=== PATIENT | female | born 1955 | race Caucasian/White ===

== ENCOUNTER → 2017-09-04 14:40 | Outpatient (CLI) | payer OTHER, SELFPAY ==
--- NOTE | 2017-09-04 14:44 | RAD_ITS ---
STUDY: X-RAY - SACRUM/COCCYX REASON FOR EXAM: Female, 62 years old. Tailbone pain TECHNIQUE: 3 view(s) of the sacrum and coccyx were obtained. COMPARISON: None. FINDINGS: There is degenerative arthrosis of the bilateral sacroiliac joints. Normal visualized sacral ala and fused sacral bodies. Normal sacrococcygeal junction with a normal angulation. Normal coccygeal segments. The presacral soft tissue structures are unremarkable. There is no demonstrated fracture. RAD/Sacrum-Coccyx min 2 Views IMPRESSION: No acute findings Electronically Signed: Jay Lauren DO at 8:50 EST Tel , Service support ,
--- NOTE | 2017-09-04 14:44 | RAD_ITS ---
STUDY: X-RAY - ABDOMEN/PELVIS REASON FOR EXAM: Female, 62 years old. Abdominal pain, chronic constipation TECHNIQUE: Two AP supine views of the abdomen and pelvis. COMPARISON: None. FINDINGS: Normal visualized lung bases. There is an abundance of fecal material throughout the colon. There is no demonstrated free abdominal air. The visualized liver, spleen and kidneys are grossly normal in size and morphology. There are calcified phleboliths in the pelvis. There are diffuse degenerative changes of the visualized lumbar spine. RAD/Abdomen Single View IMPRESSION: Abundant fecal retention throughout the colon Electronically Signed: Jay Lauren DO at 8:50 EST Tel , Service support ,
== END ==
PROVIDERS: Family Provider Internal Medicine; PCP Internal Medicine; Visit Provider Internal Medicine
DX: K59.09 Other constipation (principal); M53.3 Sacrococcygeal disorders, not elsewhere classified
CPT/HCPCS: 72220; 74018

== ENCOUNTER → 2017-09-24 14:31 | Outpatient (CLI) | payer OTHER, SELFPAY ==
--- NOTE | 2017-09-24 14:34 | RAD_ITS ---
STUDY: X-RAY CHEST REASON FOR EXAM: Female, 62 years old. Influenza. TECHNIQUE: PA and lateral views of the chest. COMPARISON: Comparison is made with prior study dated July 24, 2014. FINDINGS: Hyperinflation. Scattered calcified granulomas. There is no demonstrated pleural abnormality. Normal size heart. Normal mediastinum and abad. Normal visualized pulmonary arteries. There is atherosclerotic tortuosity of the aortic arch and descending thoracic aorta. There is demineralization of the osseous structures. Normal visualized ribs, clavicles, and shoulders. There is no demonstrated abnormality of the visualized soft tissue structures of the upper abdomen. RAD/Chest PA and Lateral IMPRESSION: Hyperinflation. No acute abnormality is seen. Electronically Signed: Oswaldo Sanchez MD at 14:57 EST Tel [phone], Service support ,
== END ==
PROVIDERS: Family Provider Internal Medicine; PCP Internal Medicine; Visit Provider Nurse Practitioner
DX: J11.1 Influenza due to unidentified influenza virus with other respiratory manifestations (principal)
CPT/HCPCS: 71046

== ENCOUNTER → 2018-10-02 15:50 | Outpatient (CLI) | payer OTHER, SELFPAY ==
--- NOTE | 2018-10-02 15:57 | BI_ITS ---
MAMMOGRAPHY - BILATERAL SCREENING REASON FOR EXAM: Female, 63 years old. Routine annual screening examination. PERTINENT HISTORY: Non-contributory. TECHNIQUE: Digital bilateral breast jennifer (3D mammographic acquisition) in the CC and MLO projections. 2-D mediolateral oblique (MLO) and craniocaudad (CC) views of both breasts were obtained. CAD: Full Field Digital Mammography with Computer Added Detection was performed. COMPARISON: Comparison is made with prior study dated July 26, 2017 and June 30, 2016. FINDINGS: Breast Composition: The breasts are heterogeneously dense, which may obscure small masses. There are no dominant masses or suspicious calcifications. No other significant abnormalities are identified. There has been no significant change since the prior study. BI/SCREENING MAMM (CAD), BILAT IMPRESSION: Stable bilateral screening mammogram. Yearly follow-up mammogram recommended. (A) ASSESSMENT CATEGORY: BIRADS Category 1: Negative. A letter regarding these results will be sent to the patient by the facility within 30 days. Approximately 10% of breast cancers are not detected by mammography. A normal mammogram should not delay biopsy of a clinically suspicious abnormality. [id number] Electronically Signed: Oswaldo Sanchez, at 8:23 EST , Service support ,
== END ==
PROVIDERS: Family Provider Internal Medicine; PCP Internal Medicine; Referring Provider Internal Medicine; Visit Provider Internal Medicine
DX: Z12.31 Encounter for screening mammogram for malignant neoplasm of breast (principal)
CPT/HCPCS: 77063; 77067

== ENCOUNTER → 2019-11-10 | Outpatient (CLI) | payer OTHER, SELFPAY ==
[2019-07-21 17:08] VITALS: BMI 24.5
--- NOTE | 2019-11-10 12:42 | BI_ITS ---
MAMMOGRAPHY - BILATERAL SCREENING REASON FOR EXAM: Female, 64 years old. Routine annual screening examination. PERTINENT HISTORY: Non-contributory. TECHNIQUE: Digital bilateral breast john (3D mammographic acquisition) in the CC and MLO projections. 2-D mediolateral oblique (MLO) and craniocaudad (CC) views of both breasts were obtained. CAD: Full Field Digital Mammography with Computer Added Detection was performed. COMPARISON: Comparison is made with prior study dated October 02, 2018 and July 26, 2017. FINDINGS: Breast Composition: The breasts are heterogeneously dense, which may obscure small masses. There are no dominant masses or suspicious calcifications. No other significant abnormalities are identified. There has been no significant change since the prior study. BI/SCREEN MAMM (CAD) W/JOHN BILAT IMPRESSION: Stable bilateral screening mammogram. Yearly follow-up mammogram recommended. (A) ASSESSMENT CATEGORY: BIRADS Category 1: Negative. A letter regarding these results will be sent to the patient by the facility within 30 days. Approximately 10% of breast cancers are not detected by mammography. A normal mammogram should not delay biopsy of a clinically suspicious abnormality. [id number] Electronically Signed: Oswaldo Sanchez, at 14:49 EDT , Service support ,
== END | disposition home or self-care (01) ==
PROVIDERS: PCP Internal Medicine; Referring Provider Internal Medicine; Visit Provider Internal Medicine
DX: Z12.31 Encounter for screening mammogram for malignant neoplasm of breast (principal)
CPT/HCPCS: 77063; 77067

== ENCOUNTER → 2020-07-02 | Outpatient (CLI) | payer OTHER, SELFPAY ==
[2020-07-02 11:27] VITALS: BMI 23.0
== END | disposition home or self-care (01) ==
LOC: LABSPEC 12:16
PROVIDERS: Visit Provider Physician Assistant Surgical
DX: U07.1 COVID-19 (principal)
CPT/HCPCS: 87635; U0003

== ENCOUNTER → 2020-12-13 10:21 | Outpatient (CLI) | payer OTHER, SELFPAY ==
[2020-07-02 11:27] VITALS: BMI 23.0
--- NOTE | 2020-12-13 10:24 | BI_ITS ---
MAMMOGRAPHY - BILATERAL SCREENING REASON FOR EXAM: Female, 65 years old. Routine annual screening examination. PERTINENT HISTORY: Non-contributory. TECHNIQUE: Digital bilateral breast john (3D mammographic acquisition) in the CC and MLO projections. 2-D mediolateral oblique (MLO) and craniocaudad (CC) views of both breasts were obtained. CAD: Full Field Digital Mammography with Computer Added Detection was performed. COMPARISON: Comparison is made with prior study 11/10/2019 and 06/01/2019. FINDINGS: Breast Composition: The breasts are heterogeneously dense, which may obscure small masses. There are no dominant masses or suspicious calcifications. No other significant abnormalities are identified. There has been no significant change since the prior study. BI/SCRN MAMM (CAD)W/JOHN BILAT IMPRESSION: Stable bilateral screening mammogram. Yearly follow-up mammogram recommended. (A) ASSESSMENT CATEGORY: BIRADS Category 1: Negative. A letter regarding these results will be sent to the patient by the facility within 30 days. Approximately 10% of breast cancers are not detected by mammography. A normal mammogram should not delay biopsy of a clinically suspicious abnormality. [id number] Electronically Signed: Oswaldo Sanchez MD at 12:55 EDT , Service support ,
== END ==
PROVIDERS: PCP Internal Medicine; Referring Provider Internal Medicine; Visit Provider Internal Medicine
DX: Z12.31 Encounter for screening mammogram for malignant neoplasm of breast (principal)
CPT/HCPCS: 77063; 77067

== ENCOUNTER → 2021-03-24 07:16 | Outpatient (CLI) | payer OTHER, SELFPAY ==
[2020-07-02 11:27] VITALS: BMI 23.0
--- NOTE | 2021-03-24 07:21 | MRI_ITS ---
STUDY: MRI BRAIN WITH AND WITHOUT CONTRAST REASON FOR EXAM: Female, 66 years old. MS- diagnosed 2001, episode of speech issues, confusion TECHNIQUE: Standardized multiplanar fat and water weighted pulse sequences were obtained. 14ml IV Dotarem was administered for the contrast portion of the examination. COMPARISON: None. FINDINGS: Normal size of the ventricles and extra-axial spaces for the patient''s age. There are perpendicular hyperintensities of the pericallosal and periventricular white matter consistent with known demyelinating disease (multiple sclerosis). No contrast enhancing plaque. There is no evidence for recent intracranial ischemia or other cause of cytotoxic edema on diffusion weighted imaging (DWI). Normal T2* images of the brain without demonstrated susceptibility artifact. There is no demonstrated hemosiderin stain. Normal bilateral basal ganglia. Normal thalami. There is no extra-axial fluid accumulation. Normal flow voids within the major intracranial circulation suggesting patency by spin echo criteria. Normal venous enhancement. There is no enhancing intra-axial or extra-axial abnormality. Normal sella turcica, pituitary gland, infundibular stalk, optic chiasm and hypothalamus. Normal tectal plate and pineal gland. Normal midbrain, devin and medulla. Normal cerebellum. Normal basal cisterns. Normal bilateral temporal bones. Normal bilateral internal auditory canals. No demonstrated orbital abnormality, within the constraints of a routine brain study. Normal visualized paranasal sinuses. Normal calvarium and skull base. Normal visualized soft tissue structures. Normal visualized upper cervical spine. MRI/Brain W/WO Contrast IMPRESSION: Known demyelinating disease (multiple sclerosis). No contrast enhancing plaque. Electronically Signed: Brent Zhao MD at 8:36 EDT Tel , Service support ,
[2021-03-24 07:36] LABS: CREATININE FINGERSTICK 0.7 mg/dL (0.55-1.02); EGFR FINGERSTICK > 60.0000 mL/min (>60)
== END ==
PROVIDERS: PCP Internal Medicine; Referring Provider Psychiatry & Neurology Neurology; Visit Provider Psychiatry & Neurology Neurology
DX: G35 Multiple sclerosis (principal)
CPT/HCPCS: 70553; A9575

== ENCOUNTER 2021-03-28 19:48 | Inpatient (IN) | payer OTHER, SELFPAY ==
[2021-03-28 19:49] VITALS: BP 128/81; PULSE 81; RESP 16; TEMP 36.2; O2SAT 97; BMI 22.8
--- NOTE | 2021-03-28 20:37 | CT_ITS ---
INDICATION: Left flank pain EXAMINATION: CT Abdomen And Pelvis W/O Contrast Injection TECHNIQUE: Helically acquired images were obtained of the abdomen and pelvis without the use of IV contrast. A radiation dose optimization technique was used for this scan. Oral contrast: None. COMPARISON: None FINDINGS: Evaluation of the solid organs and vascular structures is limited without intravenous contrast. Visualized lung bases: Unremarkable Liver: Scattered subcentimeter hypodensities are too small to characterize but most likely cysts. Gallbladder: Unremarkable Spleen: Unremarkable Pancreas: Unremarkable Adrenal Glands: Unremarkable Kidneys: Mild left hydronephrosis. No definite obstructing stone is seen. Vasculature: Mild scattered aortoiliac atherosclerotic calcifications. GI Tract: Unremarkable Lymphadenopathy: None Peritoneum: No ascites. Bladder: Unremarkable Reproductive organs: Unremarkable Bones/Soft tissues: No suspicious osseous or soft tissue lesions CT/Abdomen/Pelvis without Cont IMPRESSION: Mild left hydronephrosis with no obvious obstructing stone visualized. There are multiple pelvic phleboliths in the pelvis which make it difficult to identify a ureteral stone on this examination. Consider multiphase CT urogram w/ and w/out contrast. Electronically Signed: Manjeet Cardoza MD at 21:16 EDT Tel , Service support ,
--- NOTE | 2021-03-28 20:42 | EX.ED.DYSGE1 ---
HPI History of Present Illness Chief Complaint: Flank Pain Informant: patient Narrative Narrative: Patient is a 66-year-old female with a past medical history of multiple sclerosis who presents to the emergency department for left-sided flank pain. It started around 6 PM today. She is never had this pain before. No previous abdominal surgeries. She denies any urinary symptoms. No change in bowel movements. No vomiting. She took ibuprofen just prior to coming in which has not given significant relief. She describes the pain as severe. No known aggravating or relieving factors. Does wrap around to the left lower quadrant. She denies any history of kidney stones. She denies any chest pain or shortness of breath. No fevers or chills. [facility] Medical History (Updated 03/28/21 @ 23:[address] Ted Jolly DO) Migraine Multiple sclerosis Home Medications Excedrin Migraine Caplet mg PO UD 11/01/16 [History Last Taken Unknown] amantadine HCl 100 mg PO BID 11/01/16 [History Last Taken Unknown] calcium carbonate-vitamin D3 1 mg PO DAILY 11/01/16 [History Last Taken Unknown] denosumab 60 mg SQ UD 11/01/16 [History Last Taken Unknown] ibuprofen 200 mg PO Q4H PRN PRN 11/01/16 [History Last Taken Unknown] Allergy/AdvReac Type Severity Reaction Status Date / Time tramadol AdvReac Severe Nausea/Vom/ Verified 03/28/21 20:46 Diarrhea HAY FEVER Allergy Unknown Uncoded 03/28/21 19:52 Social History Smoking Status: Never smoker [facility] ED Constitutional Constitutional ED: Denies chills or fever(s) ENT ENT ED: Denies rhinorrhea Cardiovascular Cardiovascular: Denies chest pain Respiratory/Chest Respiratory/Chest: Denies cough or dyspnea Gastrointestinal Gastrointestinal: Reports abdominal pain; Denies diarrhea or vomiting Genitourinary Genitourinary ED: Denies dysuria, hematuria or urinary frequency Musculoskeletal Musculoskeletal: Reports back pain; Denies neck pain Integumentary Denies rash Neurologic Neurologic: Denies headache(s) or weakness EXAM Physical Exam Const Vital Signs: 03/28/21 19:49 03/28/21 22:43 Temperature 97.2 F L Temperature Source Temporal Pulse Rate 81 76 Respiratory Rate 16 14 Blood Pressure 128/81 H 107/57 L Blood Pressure Mean 96 73 Pulse Ox 97 96 Oxygen Delivery Method Room Air Room Air Positive well nourished and well developed Constitutional Narrative: Patient does appear in distress screaming and holding her abdomen. General Appearance ED: well developed HEENT Reports normocephalic and head/scalp atraumatic Eyes EOMs intact bilaterally Neck supple Chest Wall inspection of chest normal Resp normal respiratory effort and clear to auscultation bilaterally Auscultation: Negative for rales, rhonchi or wheezes Cardio regular rate, regular rhythm and no murmurs GI normal to inspection, nondistended, normoactive bowel sounds GI Narrative: Tenderness to left lower quadrant and left flank. Palpation: soft; Negative for guarding or rebound tenderness present Back/Spine Back/Spine Narrative: No midline spine tenderness or step-off. Extremity normal to inspection General Extremety ED: Negative for edema or tenderness General Extremity: Negative for edema Neuro Sensorium / Orientation: alert Motor Exam: strength 5/5 throughout Psych Attitude: agitated Skin no rashes or lesions noted MDM MDM MDM Narrative Medical decision making narrative: Patient presents to the emerge department for left-sided flank pain with acute onset. On arrival to the ED vital signs within normal limits. She is screaming in discomfort. We will start an IV and give morphine and Zofran. She will have a CT scan to evaluate for kidney stone as well as urinalysis. Patient CT scan showed hydronephrosis but there are a lot of phleboliths that they cannot exactly see a ureteral stone. I have high suspicion for this. Unfortunately cannot get patient's pain controlled. Patient will require hospitalization for pain control and urology evaluation. She otherwise has remained stable. Patient is being signed out due to end of shift. Urine does not show any evidence of infection. Lab Data Labs: Laboratory Results - last 24 hr 03/28/21 03/28/21 03/28/21 20:25 20:25 22:25 WBC 8.8 RBC 4.56 Hgb 14.5 Hct 43.2 MCV 94.7 MCH 31.8 MCHC 33.6 RDW Std Deviation 42.4 RDW Coeff of Juan 12.1 Plt Count 229 MPV 10.0 Immature Gran % (Auto) 0.700 Neut % (Auto) 83.8 H Lymph % (Auto) 9.9 L [place] % (Auto) 4.7 Eos % (Auto) 0.6 Baso % (Auto) 0.3 Absolute Neuts (auto) 7.4 Absolute Lymphs (auto) 0.87 Nucleated RBC % 0 Sodium 137 Potassium 3.8 Chloride 104 Carbon Dioxide 26.0 Anion Gap 7 BUN 21 H Creatinine 1.00 Estim Creat Clear Calc 59.40 Est GFR (MDRD) Af Amer 72 Est GFR (MDRD) Non-Af 59 L BUN/Creatinine Ratio 21.0 H Glucose 130 H Calcium 9.3 Total Bilirubin 0.80 AST 18 ALT 26 Alkaline Phosphatase 45 Total Protein 7.5 Albumin 4.5 Globulin 3.0 Albumin/Globulin Ratio 1.5 Urine Color Yellow Urine Clarity Clear Urine pH 5.0 Ur Specific [place] 1.030 Urine Protein 15 H Urine Glucose (UA) Normal Urine Ketones 150 A* Urine Occult Blood 50 H Urine Nitrite Negative Urine Bilirubin Negative Urine Urobilinogen Normal Ur Leukocyte Esterase Negative Urine RBC 0-5 SEEN Urine WBC 0 SEEN Ur Squamous Epith Cells 0 SEEN Urine Bacteria 0 SEEN Urine Mucus 0 SEEN Radiography Diagnostic Testing: Radiology Impression Abdomen/Pelvis CT 03/28/21 20:37 IMPRESSION: Mild left hydronephrosis with no obvious obstructing stone visualized. There are multiple pelvic phleboliths in the pelvis which make it difficult to identify a ureteral stone on this examination. Consider multiphase CT urogram w/ and w/out contrast. Electronically Signed: Manjeet Cardoza MD at 21:16 EDT Tel , Service support , Discharge Plan Triage Chief Complaint: Flank Pain ED Provider: Ted Jolly Dx/Rx/DC Orders Clinical Impression: Acute flank pain, Hydronephrosis Prescriptions: No Action amantadine HCl 100 MG capsule 100 mg PO BID RF: 0 ibuprofen 200 MG tablet 200 mg PO Q4H PRN PRN (Reason: Pain) RF: 0 calcium carbonate-vitamin D3 1 EACH tablet 1 mg PO DAILY RF: 0 denosumab 60 MG/ML syringe 60 mg SQ UD RF: 0 Excedrin Migraine Caplet PO UD RF: 0 Primary Care Provider: Gela Casanova Referrals: Gela Casanova DO [Primary Care Provider] - Disposition Disposition: [facility] Care [facility]
[2021-03-28] MEDS: Ondansetron 4 MG/2 ML Vial IV (20:48)
[2021-03-28 20:50] LABS: Absolute Lymphocyte Count 0.87 X10^3/uL (0.83-4.51); Absolute Neutrophil Count 7.4 X10^3/uL (2.0-7.7); Basophil# 0.03 X10^3/uL; Basophil% 0.3 % (0-1); Eosinophil# 0.05 X10^3/uL; Eosinophils% 0.6 % (0-5); Hematocrit 43.2 % (37-47); Hemoglobin 14.5 g/dL (12.0-15.0); Lymphocyte # 0.87 X10^3/ul (0.83-4.51); Lymphocyte % 9.9 % (19-41); Mean Corp Hgb Conc 33.6 g/dL (32-36); Mean Corpuscular Hgb 31.8 pg (27.0-32.0); Mean Corpuscular Volume 94.7 fL (81-99); Monocyte# 0.41 X10^3/uL; Monocyte% 4.7 % (0-10); NRBC Flagged by Analyzer 0 % (0-5); Neutrophil # 7.37 X10^3/uL (2.7-7.7); Neutrophil % 83.8 % (47-70); Platelet Count 229 K/mm3 (150-450); RBC Distribution Width CV 12.1 % (11.6-14.6); RBC Distribution Width SD 42.4 fl (35.1-43.9); Red Blood Count 4.56 M/mm3 (4.2-5.4); White Blood Count 8.8 K/mm3 (4.4-11.0)
[2021-03-28] MEDS: Morphine 4 MG/ML Syringe IV (20:57)
[2021-03-28 21:06] LABS: ALB/GLOB Ratio 1.5 RATIO (0.9-2.4); AST(SGOT) 18 U/L (15-37); Alanine Aminotransfer ALT/SGPT 26 U/L (13-56); Albumin, Serum 4.5 g/dL (3.2-5.0); Alkaline Phosphatase 45 U/L (45-117); Anion Gap 7 (5-15); BUN 21 mg/dL (7-18); Calcium,Total 9.3 mg/dL (8.5-10.1); Chloride 104 mmol/L (98-107); EST Glomerular Filtration Rate 59 mL/min (>60); Est Glom Filt Rate - Afr Amer 72 mL/min (>60); Glucose 130 mg/dL (74-106); Potassium 3.8 mmol/L (3.5-5.1); Protein, Total 7.5 g/dL (6.4-8.2); Sodium Level 137 mmol/L (136-145)
[2021-03-28] MEDS: Ketorolac 15 MG/ML Vial IV (21:35)
[2021-03-28] MEDS: HYDROmorphone 1 MG/ML Syringe IV (21:36)
[2021-03-28 22:31] LABS: Bacteria 0 SEEN /hpf (None Seen); Mucous, Urine 0 SEEN /hpf (<or=2+); White Blood Cells 0 SEEN /hpf (0-5)
[2021-03-28 22:32] LABS: Color, Urine Yellow (Yellow); Glucose, Dipstick Normal (Normal); Leukocyte Esterase-Dipstick Negative /ul (Negative); Nitrite-Dipstick Negative (Negative); Occult Blood-Urine 50 /ul (Negative); Protein-Dipstick 15 mg/dl (Negative); Urine Bilirubin Dipstick Negative (Negative); Urine Clarity Clear (Clear); Urine Urobilinogen Normal (Normal)
[2021-03-28 22:36] LABS: Ketone-Dipstick 150 mg/dl (Negative)
[2021-03-28 22:38] LABS: Red Blood Cells-Urine 0-5 SEEN /hpf (0-5); Squamous Epithelial Cells - UA 0 SEEN /hpf (5-10)
[2021-03-28 22:43] VITALS: BP 107/57; PULSE 76; RESP 14; O2SAT 96
[2021-03-28] MEDS: HYDROmorphone 0.5 MG/0.5 ML SYRINGE IV (22:50)
[2021-03-29] VITALS (16 sets, daily range): BP systolic 103–143; BP diastolic 57–78; PULSE 56–87; RESP 16–20; TEMP 35.9–37.2; O2SAT 96–100; BMI 23.3
[2021-03-29] MEDS: HYDROmorphone 0.5 MG/0.5 ML SYRINGE IV ×4 (00:13→15:21)
--- NOTE | 2021-03-29 02:12 | HP.PCM.HOS_ITS ---
HPI - General General Date of Admission: 03/29/21 HPI Narrative VIRGIE KRUSE, is a 66 F with a significant history of osteopenia and multiple sclerosis who presents to the emergency department with excruciating left flank pain that started few before presentation. She described the pain as sharp. She denies any ameliorating or aggravating factors to the pain. The pain is nonradiating. She denies any fever. Associated with her symptoms is diaphoresis, nausea; and multiple episodes of vomiting. [facility] Medical History Migraine Multiple sclerosis Home Medications Excedrin Migraine Caplet mg PO UD 11/01/16 [History Last Taken Unknown] amantadine HCl 100 mg PO BID 11/01/16 [History Last Taken Unknown] calcium carbonate-vitamin D3 1 mg PO DAILY 11/01/16 [History Last Taken Unknown] denosumab 60 mg SQ UD 11/01/16 [History Last Taken Unknown] ibuprofen 200 mg PO Q4H PRN PRN 11/01/16 [History Last Taken Unknown] Allergy/AdvReac Type Severity Reaction Status Date / Time tramadol AdvReac Severe Nausea/Vom/ Verified 03/28/21 20:46 Diarrhea HAY FEVER Allergy Unknown Uncoded 03/28/21 19:52 Family History Other Dementia Heart disease Surgical History Hx of varicose vein ligation and stripping Social History Smoking Status: Never smoker ROS ROS Narrative Constitutional: Denies anorexia and change in weight Eyes: Denies blurry vision, change in eye color, change in vision, discharge from eye(s), double vision, erythema, eye pain, loss of vision or other HEENT: Denies abnormal hearing, dysphagia, ear pain, epistaxis, headache(s), hearing loss, nasal congestion, nasal discharge, post nasal drip, sinus pressure, sore throat or other Cardiovascular: Denies chest pain. Denies dyspnea on exertion, orthopnea and paroxysmal nocturnal dyspnea Respiratory/Chest: Denies cough, excessive phlegm production, shortness of breath with exertion and wheezing Gastrointestinal: Reports nausea and vomiting. Denies abdominal pain, coffee ground emesis, constipation, diarrhea, dyspepsia, hematemesis, hematochezia, loose stools, or melena. Genitourinary: Reports urine retention. Denies burning urination, difficulty urinating, dysuria, hematuria, nocturia, urinary frequency, urinary hesitancy, urinary incontinence, or urinary urgency . Musculoskeletal: Denies arthralgias, back pain, joint pain, joint stiffness, joint swelling, myalgias, neck pain or other Neurologic: Denies abnormal gait, abnormal speech, confusion, disequilibrium, dizziness, focal weakness, headache(s), numbness, paresthesias, seizure-like activity, seizures, syncope, tingling, tremor(s) or other Psychiatric: Denies anxiety, depression, homicidal ideation, suicidal ideation or other Endocrinology: Denies change in body appearance, cold intolerance, excessive sweating, heat intolerance, polydipsia, polyuria or other Hematologic/Lymphatic: Denies anemia, easy bleeding, easy bruising, lymphadenopathy or other Integumentary: Denies ulcer on buttocks. Allergic/Immunologic: Denies rhinitis, hives, eczema, asthma or other Vital Signs Vital Signs Vital Signs: 03/28/21 19:49 03/28/21 22:43 03/29/21 00:13 Temperature 97.2 F L Temperature Source Temporal Pulse Rate 81 76 79 Respiratory Rate 16 14 16 Blood Pressure 128/81 H 107/57 L 106/67 Blood Pressure Mean 96 73 80 Pulse Ox 97 96 99 Oxygen Delivery Method Room Air Room Air Room Air Weight Weight: 70.307 kg Body Mass Index (BMI) 22.8 Physical Exam Narrative Physical exam: General: Patient with retching and vomiting. Head: Normocephalic, atraumatic, no tenderness Eyes: PERRLA, EOMI ENT, no trauma, moist mucous membranes, no rhinorrhea Neck: Nontender, full range of motion, no spinal tenderness, deformities, step-off CVS: Regular rate and rhythm Respiratory no acute distress, clear to auscultation bilaterally, chest wall nontender, no wheezing Abdomen: Soft, nontender, nondistended, normal bowel sounds, no masses : Deferred Back: Nontender, no CVA tenderness, no midline spinal tenderness, deformities, step-offs Extremities: Nontender full range of motion, no trauma Skin: Normal color, no trauma, abrasions Neuro: Alert, oriented, cranial nerves II through XII grossly intact. Psychiatry: Normal mood. Normal affect. Not depressed. Not anxious. Results Lab / Micro Data Result Diagrams: 03/28/21 20:25 03/28/21 20:25 Labs: Laboratory Results - last 24 hr 03/28/21 20:25: WBC 8.8, RBC 4.56, Hgb 14.5, Hct 43.2, MCV 94.7, MCH 31.8, MCHC 33.6, RDW Std Deviation 42.4, RDW Coeff of Juan 12.1, Plt Count 229, MPV 10.0, Immature Gran % (Auto) 0.700, Neut % (Auto) 83.8 H, Lymph % (Auto) 9.9 L, [place] % (Auto) 4.7, Eos % (Auto) 0.6, Baso % (Auto) 0.3, Absolute Neuts (auto) 7.4, Absolute Lymphs (auto) 0.87, Nucleated RBC % 0 03/28/21 20:25: Sodium 137, Potassium 3.8, Chloride 104, Carbon Dioxide 26.0, Anion Gap 7, BUN 21 H, Creatinine 1.00, Estim Creat Clear Calc 59.40, Est GFR (MDRD) Af Amer 72, Est GFR (MDRD) Non-Af 59 L, BUN/Creatinine Ratio 21.0 H, Glucose 130 H, Calcium 9.3, Total Bilirubin 0.80, AST 18, ALT 26, Alkaline Phosphatase 45, Total Protein 7.5, Albumin 4.5, Globulin 3.0, Albumin/Globulin Ratio 1.5 03/28/21 22:25: Urine Color Yellow, Urine Clarity Clear, Urine pH 5.0, Ur Specific [place] 1.030, Urine Protein 15 H, Urine Glucose (UA) Normal, Urine Ketones 150 A*, Urine Occult Blood 50 H, Urine Nitrite Negative, Urine Bilirubin Negative, Urine Urobilinogen Normal, Ur Leukocyte Esterase Negative, Urine RBC 0-5 SEEN, Urine WBC 0 SEEN, Ur Squamous Epith Cells 0 SEEN, Urine Bacteria 0 SEEN, Urine Mucus 0 SEEN Radiology Impression Abdomen/Pelvis CT 03/28/21 20:37 IMPRESSION: Mild left hydronephrosis with no obvious obstructing stone visualized. There are multiple pelvic phleboliths in the pelvis which make it difficult to identify a ureteral stone on this examination. Consider multiphase CT urogram w/ and w/out contrast. Electronically Signed: Manjeet Cardoza MD at 21:16 EDT Tel , Service support , Assessment & Plan Assessment/Plan (1) Kidney stone: PLAN: Left kidney stone with hydronephrosis Impression of CT of abdomen and pelvis without contrast: Mild left hydro nephrosis with no obvious obstructing stone visualized. There are multiple pelvic phleboliths in the pelvis which make it difficult to identify a ureteral stone on this examination. Radiologist recommended multiphase CT urogram w/ and w/out contrast. Actual CT image of abdomen and pelvis without contrast was interpreted and I agree radiologist interpretation. Supportive treatment with IV Toradol; IV Dilaudid and IV fluids. Patient received IV morphine at the emergency department and she thinks it did not help her. Urology consult. DVT prophylaxis: SCD ordered.
[2021-03-29] MEDS: 0.9% Saline Lock 10 ML Syringe IV ×4 (03:53→15:21)
[2021-03-29] MEDS: 0.9% Normal Saline 1,000 ML 75 ML IV (03:53)
[2021-03-29] MEDS: Ondansetron 4 MG/2 ML Vial IV (03:57)
[2021-03-29] MEDS: Ketorolac 15 MG/ML Vial IM ×3 (05:28→18:58)
[2021-03-29 06:23] LABS: Absolute Neutrophil Count 5.9 X10^3/uL (2.0-7.7); Basophil# 0.02 X10^3/uL; Basophil% 0.3 % (0-1); Hematocrit 41.8 % (37-47); Hemoglobin 13.8 g/dL (12.0-15.0); Lymphocyte % 8.8 % (19-41); Mean Corpuscular Hgb 31.6 pg (27.0-32.0); Mean Corpuscular Volume 95.7 fL (81-99); Mean Platelet Vol. 9.9 fl (6.2-12.0); Monocyte# 0.25 X10^3/uL; Monocyte% 3.7 % (0-10); NRBC Flagged by Analyzer 0 % (0-5); Neutrophil # 5.92 X10^3/uL (2.7-7.7); Neutrophil % 86.5 % (47-70); POSITIVE DIFFERENTIAL YES; Platelet Count 209 K/mm3 (150-450); RBC Distribution Width CV 12.2 % (11.6-14.6); Red Blood Count 4.37 M/mm3 (4.2-5.4); White Blood Count 6.8 K/mm3 (4.4-11.0)
[2021-03-29 06:26] LABS: Differential Indicated SCAN CRITERIA MET
[2021-03-29 06:47] LABS: Anion Gap 7 (5-15); BUN 18 mg/dL (7-18); BUN/Creat Ratio 22.5 RATIO (10-20); Calcium,Total 8.6 mg/dL (8.5-10.1); Chloride 104 mmol/L (98-107); EST Glomerular Filtration Rate 77 mL/min (>60); Est Glom Filt Rate - Afr Amer 93 mL/min (>60); Estimated Creatinine Clearance 74.25 ml/min; Glucose 129 mg/dL (74-106); Potassium 4.2 mmol/L (3.5-5.1); Sodium Level 136 mmol/L (136-145)
--- NOTE | 2021-03-29 07:33 | CON.PCM_ITS ---
Assessment & Plan Assessment/Plan (1) Hydronephrosis: PLAN: Proceed with cystoscopy, left retrograde pyelogram, left ur eteroscopy, possible holmium laser lithotripsy, left ureteral stent insertion. The procedure was discussed with the patient and she understands and agrees. Continue fluids, nausea control and supportive care Covid testing, urine culture (2) Acute flank pain: HPI Consult Data Date of Consult: 03/29/21 HPI Narrative HPI Narrative: VIRGIE KRUSE, is a 66 F who presented to the emergency room with acute onset severe left flank pain that wrapped around her front along with nausea, vomiting and sweating. She has no history of kidney stones in the past. She does have a history of MS that is in remission. She did not have any dysuria, hematuria, urgency, frequency or other sign of urinary tract infection. This morning she remains extremely nauseated, is vomiting at bedside. ON LICENSE OF [facility] Medical History Migraine Multiple sclerosis Home Medications Excedrin Migraine Caplet 2 tab PO Q6H PRN PRN 11/01/16 [History Last Taken Unknown] amantadine HCl 100 mg PO BID 11/01/16 [History Last Taken 03/28/21] calcium carbonate-vitamin D3 1 mg PO DAILY 11/01/16 [History Last Taken Unknown] ibuprofen 200 mg PO Q4H PRN PRN 11/01/16 [History Last Taken Unknown] tizanidine 4 mg PO QHS PRN 03/29/21 [History Last Taken Unknown] trazodone 50 mg PO QHS 03/29/21 [History Last Taken 03/27/21] zaleplon 10 mg PO QHS PRN 03/29/21 [History Last Taken Unknown] Allergy/AdvReac Type Severity Reaction Status Date / Time acetaminophen [From Vicodin] Allergy Nausea/Vom/ Verified 03/29/21 03:30 Diarrhea hydrocodone [From Vicodin] Allergy Nausea/Vom/ Verified 03/29/21 03:30 Diarrhea tramadol AdvReac Severe Nausea/Vom/ Verified 03/28/21 20:46 Diarrhea HAY FEVER Allergy Unknown Uncoded 03/28/21 19:52 Family History Other Dementia Heart disease Surgical History Hx of varicose vein ligation and stripping Social History Smoking Status: Never smoker ROS Constitutional Constitutional: Reports systems reviewed and no addt'l complaints, except as documented Eyes Eyes: Reports systems reviewed and no addt'l complaints, except as documented ENT HEENT: Denies loss taste/smell Cardiovascular Cardiovascular: Denies chest pain or dyspnea Respiratory/Chest Respiratory/Chest: Denies chest congestion, chest tightness or dyspnea Gastrointestinal Gastrointestinal: Reports abdominal pain, nausea and vomiting Genitourinary Genitourinary: Reports abdominal discomfort and flank pain; Denies burning urination, difficulty urinating, hematuria, urinary frequency or urinary urgency Musculoskeletal Musculoskeletal: Reports systems reviewed and no addt'l complaints, except as documented Integumentary Integumentary: Reports systems reviewed and no addt'l complaints, except as documented Neurologic Neurologic: Reports systems reviewed and no addt'l complaints, except as documented Psychiatric Psychiatric: Reports systems reviewed and no addt'l complaints, except as documented Physical Exam Const alert and oriented x3 General Appearance: cooperative and in distress Positive for other (Active vomiting) HEENT normocephalic, hearing grossly normal bilaterally and external ears normal Face and Sinus: face symmetric Nose: external nose normal External Ear: external ears normal Mouth: lips normal and tongue normal Eyes conjunctivae normal and no scleral icterus General Eye: normal appearance of both eyes Neck General: normal visual inspection and trachea midline Lymph Lymphatic: no lymphedema noted Chest inspection of chest normal Chest: symmetrical chest wall rise Resp normal respiratory effort, normal air movement, no retractions and no use of accessory muscles Cardio regular rate and regular rhythm GI soft to palpation and non-distended external exam normal Bladder / Kidney Exam: CVA tenderness left Back/Spine General Back: CVA tenderness left Extremity normal to inspection Skin no rashes or lesions noted Neuro oriented x3, CN's II-XII intact bilaterally and moves all extremities Psych mental status grossly normal, thought process normal, cooperative, affect normal and speech normal Lab / Micro Data Result Diagrams: 03/29/21 05:54 03/29/21 05:54 Labs: Laboratory Results - last 24 hr 03/28/21 20:25: WBC 8.8, RBC 4.56, Hgb 14.5, Hct 43.2, MCV 94.7, MCH 31.8, MCHC 33.6, RDW Std Deviation 42.4, RDW Coeff of Juan 12.1, Plt Count 229, MPV 10.0, Immature Gran % (Auto) 0.700, Neut % (Auto) 83.8 H, Lymph % (Auto) 9.9 L, Angelina % (Auto) 4.7, Eos % (Auto) 0.6, Baso % (Auto) 0.3, Absolute Neuts (auto) 7.4, Absolute Lymphs (auto) 0.87, Nucleated RBC % 0 03/28/21 20:25: Sodium 137, Potassium 3.8, Chloride 104, Carbon Dioxide 26.0, Anion Gap 7, BUN 21 H, Creatinine 1.00, Estim Creat Clear Calc 59.40, Est GFR (MDRD) Af Amer 72, Est GFR (MDRD) Non-Af 59 L, BUN/Creatinine Ratio 21.0 H, Glucose 130 H, Calcium 9.3, Total Bilirubin 0.80, AST 18, ALT 26, Alkaline Phosphatase 45, Total Protein 7.5, Albumin 4.5, Globulin 3.0, Albumin/Globulin Ratio 1.5 03/28/21 22:25: Urine Color Yellow, Urine Clarity Clear, Urine pH 5.0, Ur Specific [place] 1.030, Urine Protein 15 H, Urine Glucose (UA) Normal, Urine Ketones 150 A*, Urine Occult Blood 50 H, Urine Nitrite Negative, Urine Bilirubin Negative, Urine Urobilinogen Normal, Ur Leukocyte Esterase Negative, Urine RBC 0-5 SEEN, Urine WBC 0 SEEN, Ur Squamous Epith Cells 0 SEEN, Urine Bacteria 0 SEEN, Urine Mucus 0 SEEN 03/29/21 05:54: WBC 6.8, RBC 4.37, Hgb 13.8, Hct 41.8, MCV 95.7, MCH 31.6, MCHC 33.0, RDW Std Deviation 43.0, RDW Coeff of Juan 12.2, Plt Count 209, MPV 9.9, Im mature Gran % (Auto) 0.700, Neut % (Auto) 86.5 H, Lymph % (Auto) 8.8 L, Angelina % (Auto) 3.7, Eos % (Auto) 0.0, Baso % (Auto) 0.3, Absolute Neuts (auto) 5.9, Absolute Lymphs (auto) 0.60 L, Nucleated RBC % 0 03/29/21 05:54: Sodium 136, Potassium 4.2, Chloride 104, Carbon Dioxide 25.0, Anion Gap 7, BUN 18, Creatinine 0.80, Estim Creat Clear Calc 74.25, Est GFR (MDRD) Af Amer 93, Est GFR (MDRD) Non-Af 77, BUN/Creatinine Ratio 22.5 H, Glucose 129 H, Calcium 8.6 Radiology Impression Abdomen/Pelvis CT 03/28/21 20:37 IMPRESSION: Mild left hydronephrosis with no obvious obstructing stone visualized. There are multiple pelvic phleboliths in the pelvis which make it difficult to identify a ureteral stone on this examination. Consider multiphase CT urogram w/ and w/out contrast. Electronically Signed: Manjeet Cardoza MD at 21:16 EDT Tel , Service support ,
[2021-03-29] MEDS: Haloperidol Lactate 5 MG/ML Vial 1 MG IM (09:19)
--- NOTE | 2021-03-29 13:30 | PCM.HOSP.N ---
Hospitalist Note Patient was admitted early this morning after presenting to the emergency department with left-sided flank pain. Her pain started approximately at 6 AM on the day of presentation. A CT of the abdomen pelvis was done emergency department and showed mild left hydronephrosis with no obvious obstructing stone. Her UA was unimpressive for infection. She was admitted to medical surgical floor and urology has been consulted. Their plan is to proceed with cystoscopy and left retrograde pyelogram with left ureteroscopy and possible laser lithotripsy with stent insertion. Urine culture was ordered as well. She is on IV pain medication and IV antiemetics. She has never had any previous problems like this. Labs from this morning have been reviewed and there is no marked abnormalities other than an elevated fasting blood sugar in the 1 teens to 120s. Will check a.m. hemoglobin A1c for insulin resistance. Diagnoses: Left hydronephrosis Multiple sclerosis Migraine history Osteoporosis
[2021-03-29] MEDS: 0.9% Normal Saline 1,000 ML 150 ML IV ×2 (13:59→20:00)
[2021-03-29] MEDS: Cefazolin 1 GM/50 ML BAG IV ×2 (14:06→21:45)
--- NOTE | 2021-03-29 15:50 | NURSING ---
to surgery via bed @ 3335.
[2021-03-29] MEDS: Lactated Ringers 1,000 ML 100 ML IV ×2 (16:30→19:12)
--- NOTE | 2021-03-29 17:10 | PCM.OPRPT ---
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 Surgeon: Ligia Woodall Type of Anesthesia: General Specimen's removed: none Description of Procedure: The patient is a 66-year-old female who came into the emergency room with acute onset left flank pain with nausea and vomiting. She was admitted after finding left hydronephrosis on CT scan. She now presents for further evaluation informed consent was obtained for cystoscopy, retrograde pyelogram, ureteroscopy, possible laser lithotripsy and left ureteral stent insertion. The patient was taken to the operating room and placed on the operating room table. Anesthesia monitored the head, neck, airway, IV access and vital signs throughout the case. Once anesthesia was appropriate ministered the patient was placed in dorsal lithotomy position was prepped and draped in usual sterile fashion. The cystoscope was inserted through the urethra under direct visualization. Upon entry into the urinary bladder there was a piece of mucus with a questionable stone floating in the urinary bladder. Upon emptying of the bladder this stone was no longer visualized. The ureteral orifice was located in the correct anatomic position on the trigone. The bladder mucosa was visualized in its entirety and found to be without areas of erythema, mass or abnormality. The left ureteral orifice was intubated with an 8 [place] cone-tip catheter and a retrograde pyelogram was performed under fluoroscopic visualization. There were no filling defects identified, there was no hydronephrosis seen, only the upper pole filled with contrast. A 0.035 Glidewire was then passed into the renal pelvis through the ureteral orifice. A second 0.035 Glidewire was passed alongside the first and under fluoroscopic visualization was seen entering into the lower pole. At this time the flexible ureteroscope was inserted over the wire in the upper pole. Ureteroscopy was performed all the way up into the upper pole and no stones or filling defects or abnormalities were identified. At this time a Pollack catheter was inserted over the wire into the lower pole ureter. The wire was removed and a retrograde pyelogram confirmed positioning of the lower pole and hydronephrosis. The wire was then replaced and an attempt at ureteroscopy was made into this ureter which appeared to split just above the ureteral orifice. I was unable to enter this ureter due to narrowing. The ureteroscope was then removed and the cystoscope was used to place a 6 [place] 26 cm JJ stent with good curling in the lower pole as well as the urinary bladder. The patient's bladder was then emptied and the case was terminated. The patient tolerated the procedure well and was awakened and taken to the recovery room in good condition. There were no complications during this procedure. Grafts/Implants Used: 6x26 JJ stent in the left lower pole Complications none Admit VTE Documentation VTE Present on Admission: Yes VTE Mechan Device Prophylaxis: SCD's VTE Pharm Prophylaxis ordered?: Yes
[2021-03-29] MEDS: Enoxaparin 40 MG/0.4 ML Syringe SC (21:45)
[2021-03-30] MEDS: Ketorolac 15 MG/ML Vial IM ×2 (00:14→06:13)
[2021-03-30] MEDS: 0.9% Normal Saline 1,000 ML 150 ML IV (03:17)
[2021-03-30 03:53] VITALS: BP 109/61; PULSE 62; RESP 16; TEMP 36.8; O2SAT 98
[2021-03-30] MEDS: Cefazolin 1 GM/50 ML BAG IV (06:12)
[2021-03-30 07:57] LABS: Hemoglobin A1c 4.9 % (3.8-5.6)
--- NOTE | 2021-03-30 08:11 | PCM.PN.BLA ---
Progress Note Feeling much better this morning. No longer nauseated. Some minimal left side pain. We discussed the findings from surgery, specifically the duplicated collecting system. Physical Exam Const alert, oriented x3 and no apparent distress HEENT normocephalic and head/scalp atraumatic Eyes conjunctivae normal and no scleral icterus Neck supple General: trachea midline Chest inspection of chest normal Chest: symmetrical chest wall rise Resp normal respiratory effort and normal air movement Cardio regular rate and regular rhythm GI soft to palpation, non-tender and non-distended Neuro oriented x3, CN's II-XII intact bilaterally and moves all extremities Assessment & Plan Assessment/Plan (1) Acute flank pain: (2) Hydronephrosis: PLAN: discharge per primary team, ok from my standpoint to send home today plan for ureteroscopy of the lower pole left side in 2 weeks. patient is aware. my office will contact her to make arrangements
[2021-03-30 08:18] VITALS: BP 109/59; PULSE 68; RESP 16; TEMP 36.6; O2SAT 100
[2021-03-30] MEDS: Enoxaparin 40 MG/0.4 ML Syringe SC (09:27)
--- NOTE | 2021-03-30 10:48 | PCM.DC.SUM ---
Providers Date of Admission: 03/29/21 Primary Care Physician: Dr. Gela Casanova DO Consultations 03/29/21 03:22 Consult: Urology Routine Consulting Provider: Ligia Woodall Reason for Consult: Kidney stone EMERGENT Consult: No MD Notified: Yes Date Notified: 03/29/21 Time Notified: 06:49 Method of Notification: Page Reason For Visit: LEFT HYDRONEPHROSIS Diagnosis Discharge Diagnosis (1) Acute flank pain: Status: Acute Code(s): R10.9 - Unspecified abdominal pain (2) Hydronephrosis: Status: Acute Code(s): N13.30 - Unspecified hydronephrosis Medications at Discharge Home Medications Excedrin Migraine Caplet 2 tab PO Q6H PRN PRN 11/01/16 amantadine HCl 100 mg PO BID 11/01/16 calcium carbonate-vitamin D3 1 mg PO DAILY 11/01/16 ibuprofen 200 mg PO Q4H PRN PRN 11/01/16 denosumab [Prolia] 60 mg SUBCUT UD 03/29/21 tizanidine 4 mg PO QHS PRN 03/29/21 trazodone 50 mg PO QHS 03/29/21 zaleplon 10 mg PO QHS PRN 03/29/21 tramadol [Ultram] 50 mg PO Q8H PRN #15 tab 03/30/21 Hospital Course Operations - (Cystoscopy, left retrograde pyelogram, left ureteroscopy, left ureteral stent insertion) Summary of Care Provided Minutes Spent on Discharge: 36 Hospital Course: 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 On admission she described the pain as sharp and denied any exacerbating or relieving factors. It did not radiate. She has had no fever. Associated symptoms included diaphoresis, nausea, and vomiting. CT done in the emergency department of her abdomen and pelvis showed mild left hydronephrosis with no obvious obstructing stone and multiple pelvic phleboliths. The patient was admitted to the general medical floor and she was evaluated by urology. On 03/29/2021 she was taken to the OR where a cystoscopy, left retrograde pyelogram left yet left uroscopy and left ureteral stent was placed. 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 Her UA in the emergency department was unremarkable. A urine culture remains pending at discharge. Given her negative UA I will not discharge her with antibiotics at this time. Her nausea vomiting has resolved. Her flank pain has improved significantly. She was discharged in stable condition on 03/30/2021 with plans for ureteroscopy of the left lower pole in [address] Woodall's office is to call to make arrangements for follow-up. We recommended follow-up with her PCP in 1 week. She was discharged with as needed Ultram for pain. Discharge diagnoses: Left hydronephrosis Multiple sclerosis Migraine history Osteoporosis Physical Exam Const alert, oriented x3 and no apparent distress Constitutional Narrative: Upper middle-aged white female sitting up in bed, appears comfortable, nontoxic General Appearance: cooperative, comfortable, well kempt and well developed Orientation / Consciousness: awake Exam Limitations: no limitations HEENT normocephalic, head/scalp atraumatic, hearing grossly normal bilaterally, moist oral mucous membranes, oropharynx normal and dentition normal Mouth: oral and palatal mucosa normal Eyes PERRL, EOMs intact bilaterally and conjunctivae normal Neck no lymphadenopathy and supple Neck Narrative: Trachea midline, no thyroid enlargement noted Resp normal respiratory effort, no retractions, no use of accessory muscles and clear to auscultation bilaterally Auscultation: Negative for crackles, rales, rhonchi or wheezes Cardio regular rate, regular rhythm, S1 normal heart sound, S2 normal heart sound, no murmurs, no rub, no gallops, no clicks and no JVD GI normal to inspection, nondistended, normoactive bowel sounds, soft to palpation, non-tender and non-distended; Negative for hepatosplenomegaly Extremity normal to inspection and no clubbing, cyanosis or edema Skin no rashes or lesions noted, no wounds, skin turgor normal and no jaundice Skin Narrative: Skin is pale Neuro oriented x3 and moves all extremities Sensorium / Orientation: awake and alert Speech: speech normal Psych affect normal Psych Narrative: Very pleasant Weight / BMI Weight Weight: 71.8 kg Body Mass Index (BMI) 23.3 ABG / Lab / Microbiology Data Result Diagrams: 03/29/21 05:54 03/29/21 05:54 Laboratory: Laboratory Results - last 24 hr 03/30/21 06:10: Hemoglobin A1c 4.9 D/C Instructions Discharge Diet: No restrictions Discharge Activity: Return to Normal Activity Return to work on: 03/31/21 Meaningful Use Info Meaningful Use Diagnoses (Choose all that apply): None applicable Discharge Plan Admission Admit Date/Time: 03/29/21 03:22 Primary Reason for Your Visit: Hydronephrosis Attending Provider: Theresa Gunter Primary Care Provider: Gela Casanova Consulting Providers: Ligia Woodall Discharge Orders/Prescriptions Prescriptions: New tramadol [Ultram] 50 mg tablet 50 mg PO Q8H PRN (Reason: pain) Qty: 15 RF: 0 No Action amantadine HCl 100 MG capsule 100 mg PO BID RF: 0 ibuprofen 200 MG tablet 200 mg PO Q4H PRN PRN (Reason: Pain) RF: 0 calcium carbonate-vitamin D3 1 EACH tablet 1 mg PO DAILY RF: 0 Excedrin Migraine Caplet 2 tab PO Q6H PRN PRN (Reason: migraines) RF: 0 trazodone 50 mg tablet 50 mg PO QHS RF: 0 tizanidine 4 mg tablet 4 mg PO QHS PRN (Reason: migraines) RF: 0 zaleplon 10 mg capsule 10 mg PO QHS PRN (Reason: Sleep) RF: 0 Prolia 60 mg/mL Syringe 60 mg SUBCUT UD RF: 0 Referrals / Follow Up: Ligia Woodall MD [STAFF PHYSICIAN] - See Referral Note (Office to call you for follow up procedures) Gela Casanova DO [Primary Care Provider] - In 1 Week Disposition Disposition (needs filled in before D/C Order can be placed): Home, Self Care Charges/Coding Visit Charges Inpatient E&M: 09312 Disch Hosp
--- NOTE | 2021-03-30 11:50 | CASEMGMT ---
RN CATHY Face to Face with patient for initial transition planning/care coordination assessment. RN CM introduced self and role at [facility]. Patient lying in bed, alert and oriented. Patient willing to participate in assessment and is able to answer all questions appropriately. Care providers, pharmacy, and demographics verified. Patient wishes to discharge home, denies need for home health at this time. Patient states he has no further needs or concerns at this time. CM to follow for discharge planning needs that may arise. PCP: Edilberto Specialists: Ear, neurologist Preferred Pharmacy: [facility] Insurance: [employer] Prescription Benefit: yes Living Will/HPOA: none LNOK: Living Arrangements: Patient lives with in a 2 story home. Patient is independent and able to ambulate stairs. Transportation: self/ DME/HHC: Patient denies DME or previous HHC. Disposition Plan: Patient to discharge home with family support and follow-up plans in place. Elisa BEY, RN, CM
--- NOTE | 2021-03-30 12:16 | PHA.DC.MR ---
Pharmacy Service has performed discharge medication reconciliation for this patient. The patient's discharge medication list was reviewed for discrepancies and discrepancies were resolved. Medication education papers printed but patient discharged before I could financial aid counselor. Home Medications Excedrin Migraine Caplet 2 tab PO Q6H PRN PRN 11/01/16 amantadine HCl 100 mg PO BID 11/01/16 calcium carbonate-vitamin D3 1 mg PO DAILY 11/01/16 ibuprofen 200 mg PO Q4H PRN PRN 11/01/16 denosumab [Prolia] 60 mg SUBCUT UD 03/29/21 tizanidine 4 mg PO QHS PRN 03/29/21 trazodone 50 mg PO QHS 03/29/21 zaleplon 10 mg PO QHS PRN 03/29/21 tramadol [Ultram] 50 mg PO Q8H PRN #15 tab 03/30/21
== END 2021-03-30 12:12 | disposition home or self-care (01) | DRG 661 ==
LOC: ED 23:03 → MS3 03-29 07:03
PROVIDERS: Urology; Admitting Provider Hospitalist; Emergency Provider Emergency Medicine; PCP Internal Medicine; Visit Provider Internal Medicine
PROC: 0TJ98ZZ Inspection of Ureter, Via Natural or Artificial Opening Endoscopic (ICD-10-PCS; CPT 52352; principal; 2021-03-29 17:20)
DX: N13.2 Hydronephrosis with renal and ureteral calculous obstruction (principal); G35 Multiple sclerosis; G43.909 Migraine, unspecified, not intractable, without status migrainosus; M81.0 Age-related osteoporosis without current pathological fracture; I87.8 Other specified disorders of veins; Z79.899 Other long term (current) drug therapy; Q64.8 Other specified congenital malformations of urinary system
CPT/HCPCS: 36415; 74176; 76000; 80048; 80053; 81001; 83036; 85025; 87086; 99283; J7030; J7120; A4216; C2617; J2405

== ENCOUNTER → 2021-04-07 08:47 | Outpatient (CLI) | payer OTHER, SELFPAY ==
--- NOTE | 2021-04-07 08:59 | BD_ITS ---
STUDY: DUAL ENERGY X-RAY ABSORPTIOMETRY / DXA REASON FOR EXAM: Female, 66 years old. [id number]. Patient is postmenopausal. TECHNIQUE: Bone Mineral Density (BMD) measurements of lumbar spine and bilateral hips were obtained. COMPARISON: Comparison is made with prior examination of 04/10/2017. FINDINGS: Lumbar Spine (L1-L4): g/cm2 (0.819) / T-score (-1.8) / Z-score (-0.1) Findings are suggestive of osteopenia with a moderate fracture risk. Left Femur Total: g/cm2 (0.854) / T-score (-0.7) / Z-score (0.5) Left Femoral Neck: g/cm2 (0.739) / T-score (-1.0) / Z-score (0.5) Right Femur Total: g/cm2 (0.867) / T-score (-0.6) / Z-score (0.6) Right Femoral Neck: g/cm2 (0.739) / T-score (-1.0) / Z-score (0.5) The T-Scores on the most recent prior examination were: Lumbar Spine (L1-L4): There has been worsening of bone density since the previous examination. Left Femur Total: which represents a worsening of 0.9%. Right Femur Total: which represents a worsening of 0.5%. BD/Dexa Bone Density Study IMPRESSION: The patient is considered osteopenic as outlined below according to World Burke Organization (WHO) criteria with a moderate fracture risk. There has been worsening of bone density since the previous examination. Reference Information: The T-score is the number of standard deviations above or below the standard which is normal for young adults at their peak bone mineral density. The World Health Organization (WHO) interprets the T-scores as follows: Above -1 Normal bone density Between -1 and -2.5 Osteopenia Equal to / or below -2.5 Osteoporosis As a practical clinical guideline, osteopenia may be graded as follows: Mild -1 through -1.5 Moderate -1.6 through -2.0 Severe -2.1 through -2.4 The Z-score is the number of standard deviations above or below age-matched controls. A Z-score of less than -1.5 would be considered abnormal. References: 1. NIH Osteoporosis and Related Bone Diseases www osteo.org 2. International Society for Clinical Densitometry www iscd.org 3. National Osteoporosis Foundation www nof.org Electronically Signed: Oswaldo Sanchez MD at 15:01 EDT , Service support ,
== END ==
PROVIDERS: PCP Internal Medicine; Referring Provider Internal Medicine; Visit Provider Internal Medicine
DX: Z78.0 Asymptomatic menopausal state (principal)
CPT/HCPCS: 77080

== ENCOUNTER 2021-04-18 07:03 | Day surgery (SDC) | payer OTHER, SELFPAY ==
[2021-04-15 13:34] LABS: Hematocrit 43.1 % (37-47); Hemoglobin 14.6 g/dL (12.0-15.0); Mean Corp Hgb Conc 33.9 g/dL (32-36); Mean Corpuscular Volume 94.5 fL (81-99); Mean Platelet Vol. 10.2 fl (6.2-12.0); Platelet Count 265 K/mm3 (150-450); RBC Distribution Width CV 12.6 % (11.6-14.6); RBC Distribution Width SD 43.6 fl (35.1-43.9); Red Blood Count 4.56 M/mm3 (4.2-5.4); White Blood Count 4.5 K/mm3 (4.4-11.0)
[2021-04-15 14:11] LABS: Anion Gap 8 (5-15); BUN 13 mg/dL (7-18); BUN/Creat Ratio 19.7 RATIO (10-20); Calcium,Total 9.1 mg/dL (8.5-10.1); Chloride 106 mmol/L (98-107); Creatinine, Serum 0.66 mg/dL (0.55-1.02); EST Glomerular Filtration Rate 96 mL/min (>60); Est Glom Filt Rate - Afr Amer 116 mL/min (>60); Glucose 91 mg/dL (74-106); Potassium 3.6 mmol/L (3.5-5.1); Sodium Level 139 mmol/L (136-145)
[2021-04-18 07:27] VITALS: BP 115/75; PULSE 73; RESP 16; TEMP 36.8; O2SAT 100; BMI 23.5
[2021-04-18] MEDS: Lactated Ringers 1,000 ML 100 ML IV (07:38)
[2021-04-18] MEDS: Cefazolin 2 GM in 0.9% Normal Saline 100 ML IV (08:21)
--- NOTE | 2021-04-18 08:28 | PCM.DC ---
Discharge Instructions Diet Discharge Diet: No restrictions Activity Discharge Activity: No Restrictions Dressing / Incision Call your doctor if you observe: Fever of 101 or Higher, Inability to urinate, Inability to have a bowel movement and Uncontrolled pain Follow Up Care Please Follow Up With: Ligia Woodall MD When: call office for appt Test Results: Test results from this visit will be discussed in further detail at your follow-up appointment, if applicable. Discharge Plan Admission Attending Provider: Ligia Woodall Primary Care Provider: Gela Casanova Discharge Orders/Prescriptions Prescriptions: Continued amantadine HCl 100 MG capsule 100 mg PO BID RF: 0 ibuprofen 200 MG tablet 200 mg PO Q4H PRN PRN (Reason: Pain) RF: 0 calcium carbonate-vitamin D3 1 EACH tablet 1 mg PO DAILY RF: 0 Excedrin Migraine Caplet 2 tab PO Q6H PRN PRN (Reason: migraines) RF: 0 trazodone 50 mg tablet 50 mg PO QHS PRN PRN (Reason: Sleep) RF: 0 tizanidine 4 mg tablet 4 mg PO QHS PRN (Reason: migraines) RF: 0 zaleplon 10 mg capsule 10 mg PO QHS PRN (Reason: Sleep) RF: 0 Prolia 60 mg/mL Syringe 60 mg SUBCUT UD RF: 0 tramadol [Ultram] 50 mg tablet 50 mg PO Q8H PRN (Reason: pain) Qty: 15 RF: 0 multivitamin Tablet 1 tab PO DAILY RF: 0 ciprofloxacin HCl 500 mg Tablet 500 mg PO BID RF: 0 Referrals / Follow Up: Gela Casanova DO [Primary Care Provider] - Disposition Disposition (needs filled in before D/C Order can be placed): Home, Self Care
--- NOTE | 2021-04-18 08:29 | OP.PCM_ITS ---
Problems Associated Problem List Diagnoses (1) Hydronephrosis: Report of Operation Date of Procedure: 04/18/21 Pre-Operative Diagnosis: Hydronephrosis in the left lower pole of a duplicated collecting system Post-Operative Diagnosis: Same, right side upper pole drains into the left renal pelvis with no duplication of the ureter. The left side ureter splits almost immediately at the ureteral orifice Surgery/Procedure Performed:: Cystoscopy, bilateral retrograde pyelograms, left ureteroscopy, left ureteral stent removal Surgeon: Ligia Woodall Type of Anesthesia: General Description of Procedure: The patient is a 66-year-old female with an indwelling left lower pole ureteral stent for hydronephrosis who now presents for ureteroscopy and management. She has a known duplicated left collecting system. Informed consent was obtained. The patient was taken to the operating room and placed on the operating room table. Anesthesia monitored the head, neck, airway, IV access and vital signs throughout the case. Once anesthesia was appropriate ministered, the patient was placed into dorsal lithotomy position was prepped and draped in usual sterile fashion. At this time the cystoscope was inserted through the urethra under direct visualization into the urinary bladder. The bladder mucosa was visualized in its entirety and found to be without evidence of mass. The right ureteral orifice was then intubated carefully with the 8 [place] cone-tip catheter. A retrograde pyelogram was performed using contrast and fluoroscopy. The anatomy revealed an upper pole collecting system draining into the renal pelvis with 1 ureter. There was no hydronephrosis, filling defect or abnormality identified. At this time attention was turned to the patient's left side where a 0.038 Glidewire was passed alongside the stent into the left lower pole. The stent was then grasped and brought to the urethral meatus where a 0.035 Glidewire was passed through the stent which was removed. The flexible ureteroscope was then passed over the 0.035 Glidewire into the left lower pole without difficulty. The calyces were found to be multiple in number and compound in nature. No stones were identified. The entire length of the lower pole ureter was directly visualized and found to be without mass, erythema, stone or foreign body. There is no evidence of stricture or other defect. At this time, the wires were removed, and a retrograde pyelogram was performed using an 8 [place] cone-tip catheter. Both ureters appeared to be normal without evidence of hydronephrosis or obstruction. This time the patient's bladder was emptied and the case was terminated. She was taken to the recovery room in good condition. There were no complications during the procedure. Grafts/Implants Used: None Complications None Admit VTE Documentation VTE Present on Admission: Yes VTE Mechan Device Prophylaxis: SCD's VTE Pharm Prophylaxis ordered?: No Reason prophylaxis not ordered:: Treatment Not Indicated
[2021-04-18 09:03] VITALS: BP 115/75; PULSE 71; RESP 18; TEMP 36.4; O2SAT 100
[2021-04-18 09:15] VITALS: BP 101/68; BP 115/75; PULSE 64; RESP 16; O2SAT 98
[2021-04-18 09:30] VITALS: BP 102/67; BP 115/75; PULSE 66; RESP 16; O2SAT 98
[2021-04-18 09:45] VITALS: BP 107/76; BP 115/75; PULSE 62; RESP 16; TEMP 36.4; O2SAT 100
[2021-04-18 10:53] VITALS: BP 108/64; BP 115/75; PULSE 74; RESP 16; TEMP 36.4; O2SAT 98
== END 2021-04-18 11:05 | disposition home or self-care (01) ==
LOC: SDC 07:03 → AC 07:03
PROVIDERS: PCP Internal Medicine; Referring Provider Urology; Visit Provider Urology
PROC: 0TJ98ZZ Inspection of Ureter, Via Natural or Artificial Opening Endoscopic (ICD-10-PCS; CPT 52352; principal; 2021-04-18 08:40)
DX: N13.30 Unspecified hydronephrosis (principal); Q62.5 Duplication of ureter; G35 Multiple sclerosis; M81.0 Age-related osteoporosis without current pathological fracture; G43.909 Migraine, unspecified, not intractable, without status migrainosus; K21.9 Gastro-esophageal reflux disease without esophagitis; Z79.899 Other long term (current) drug therapy; Z86.718 Personal history of other venous thrombosis and embolism
CPT/HCPCS: 00910; 52005; 36415; 76000; 80048; 85027; J7120; C1769; J2405

== ENCOUNTER 2021-05-19 04:23 | Emergency (ER) | payer OTHER, SELFPAY ==
[2021-05-19 04:25] VITALS: BP 116/68; PULSE 69; RESP 18; TEMP 36.6; O2SAT 98; BMI 24.1
--- NOTE | 2021-05-19 04:39 | CT_ITS ---
HISTORY: Kidney Stone EXAMINATION: CT Abdomen And Pelvis W/O Contrast Injection TECHNIQUE: Helically acquired images were obtained of the abdomen and pelvis without oral or IV contrast. A radiation dose optimization technique was used for this scan. IV Contrast dosage and agent: None. Oral contrast: None. COMPARISON: Unenhanced CT abdomen and pelvis from 03/28/21 FINDINGS: LOWER CHEST: There are a few small bilateral peripheral pulmonary nodules, largest within posteromedial left lower lobe measures 5 mm diameter and was excluded from [id number] on prior exam. Mild linear scarring right middle lobe. Heart normal size. LIVER: Stable appearance of a few small low-attenuation cysts, no additional follow-up is recommended at this time. GALLBLADDER AND BILIARY TREE: No calcified gallstones. No pericholecystic edema detected. No significant biliary ductal dilation. KIDNEYS AND URETERS: Duplicated left renal collecting system with stable mild dilatation of lower half collecting system. Nondilated ureter. No obstructing ureteral stone identified. Several calcified pelvic phleboliths present. ADRENAL GLANDS: Non-enlarged. SPLEEN: Normal size without discrete mass. PANCREAS: No discrete mass or peripancreatic inflammation. BOWEL: No evidence of acute appendicitis. Slightly prominent colonic fecal load. No abnormal stomach or bowel distension. No focal inflammatory change observed. LYMPH NODES: No enlarged mesenteric or retroperitoneal lymph nodes. PERITONEUM: No free air or significant free fluid. No other fluid collection. VESSELS: Mild atherosclerosis. URINARY BLADDER: Unremarkable. REPRODUCTIVE ORGANS: No pelvic masses. ABDOMINAL WALL: No acute findings or significant hernia defect. BONES: Intact with no suspicious osseous lesion. CT/Abdomen/Pelvis without Cont IMPRESSION: Stable mildly dilated lower pole left renal collecting system with no obstructing stone demonstrated. Small pulmonary nodules. Favor benign postinfectious etiology but consider follow-up CT in 12 months if patient is high risk (per Fleischner Society guidelines). Possible mild constipation, correlate clinically. Individualized dose optimization techniques were used for this CT. at 0558 Reported and signed by: Douglas Martin MD Electronically Signed: Douglas Martin MD at 5:40 EDT Tel , Service support ,
[2021-05-19 04:48] LABS: Absolute Lymphocyte Count 1.19 X10^3/uL (0.83-4.51); Absolute Neutrophil Count 3.8 X10^3/uL (2.0-7.7); Basophil# 0.03 X10^3/uL; Basophil% 0.5 % (0-1); Eosinophil# 0.18 X10^3/uL; Eosinophils% 3.2 % (0-5); Hematocrit 42.5 % (37-47); Hemoglobin 14.3 g/dL (12.0-15.0); Lymphocyte # 1.19 X10^3/ul (0.83-4.51); Lymphocyte % 21.1 % (19-41); Mean Corp Hgb Conc 33.6 g/dL (32-36); Mean Corpuscular Hgb 31.7 pg (27.0-32.0); Mean Corpuscular Volume 94.2 fL (81-99); Mean Platelet Vol. 9.7 fl (6.2-12.0); Monocyte# 0.43 X10^3/uL; Monocyte% 7.6 % (0-10); NRBC Flagged by Analyzer 0 % (0-5); Neutrophil # 3.78 X10^3/uL (2.7-7.7); Neutrophil % 66.9 % (47-70); Platelet Count 222 K/mm3 (150-450); RBC Distribution Width CV 12.5 % (11.6-14.6); RBC Distribution Width SD 43.4 fl (35.1-43.9); Red Blood Count 4.51 M/mm3 (4.2-5.4); White Blood Count 5.7 K/mm3 (4.4-11.0)
[2021-05-19 04:50] LABS: Bacteria 0 SEEN /hpf (None Seen); Mucous, Urine 0 SEEN /hpf (<or=2+); Red Blood Cells-Urine 0 SEEN /hpf (0-5); Squamous Epithelial Cells - UA 0 SEEN /hpf (5-10)
[2021-05-19] MEDS: Ketorolac 30 MG/ML Syringe IV (04:50)
[2021-05-19] MEDS: Ondansetron 4 MG/2 ML Vial IV (04:50)
[2021-05-19 04:51] LABS: Color, Urine Yellow (Yellow); Glucose, Dipstick Normal (Normal); Ketone-Dipstick Negative (Negative); Leukocyte Esterase-Dipstick 25 /ul (Negative); Nitrite-Dipstick Negative (Negative); Occult Blood-Urine Negative /ul (Negative); Protein-Dipstick Negative (Negative); Specific Gravity, Urine 1.015 (1.002-1.030); Urine Bilirubin Dipstick Negative (Negative); Urine Clarity Clear (Clear); Urine Urobilinogen 1 mg/dl (Normal); Urine pH 6.5 (5.0 - 8.0)
[2021-05-19] MEDS: 0.9% Normal Saline 1,000 ML 250 ML IV (04:52)
--- NOTE | 2021-05-19 04:59 | EX.ED.DYSGE1 ---
HPI History of Present Illness Chief Complaint: Flank Pain Informant: patient Narrative Narrative: 66-year-old female states that she was recently admitted and had surgery for hydronephrosis by Dr. Woodall. Reportedly she had a stent placed. She states it was not clear what was causing the hydronephrosis. She states that her pain returned tonight significantly and is causing nausea. She took a couple Ultram that she had leftover which is helped some of her pain. [facility] Medical History Alcohol use DVT (deep venous thrombosis) Easy bruising Gastric reflux History of COVID-19 History of irregular heartbeat Kidney stone Leg cramps Migraine Multiple sclerosis Non-smoker PONV (postoperative nausea and vomiting) Wears glasses Home Medications Excedrin Migraine Caplet 2 tab PO Q6H PRN PRN 11/01/16 [History Last Taken Unknown] amantadine HCl 100 mg PO BID 11/01/16 [History Last Taken 03/28/21] calcium carbonate-vitamin D3 1 mg PO DAILY 11/01/16 [History Last Taken Unknown] ibuprofen 200 mg PO Q4H PRN PRN 11/01/16 [History Last Taken Unknown] Prolia 60 mg SUBCUT UD 03/29/21 [History Last Taken 09/06/20] tizanidine 4 mg PO QHS PRN 03/29/21 [History Last Taken Unknown] trazodone 50 mg PO QHS PRN PRN 03/29/21 [History Last Taken 03/27/21] zaleplon 10 mg PO QHS PRN 03/29/21 [History Last Taken Unknown] tramadol [Ultram] 50 mg PO Q8H PRN #15 tab 03/30/21 [Rx Last Taken Unknown] multivitamin 1 tab PO DAILY 04/14/21 [History Last Taken Unknown] ketorolac 10 mg PO Q8H PRN #15 tab 05/19/21 [Rx Last Taken Unknown] ondansetron 4 mg PO Q8H PRN PRN #15 tab 05/19/21 [Rx Last Taken Unknown] tramadol 50 mg PO Q4H PRN PRN 3 Days #20 tab 05/19/21 [Rx Last Taken Unknown] Allergy/AdvReac Type Severity Reaction Status Date / Time hydrocodone [From Vicodin] Allergy Nausea/Vom/ Verified 05/19/21 04:27 Diarrhea sumatriptan [From Imitrex] Allergy Nausea/Vom/ Verified 05/19/21 04:27 Diarrhea HAY FEVER Allergy Unknown Uncoded 05/19/21 04:27 Family History Other Dementia Heart disease Surgical History History of colonoscopy History of lithotripsy History of nasal surgery Hx of cervical polypectomy Hx of varicose vein ligation and stripping Social History (Updated 05/19/21 @ 05:[address] Nitesh Mckee DO) Smoking Status: Never smoker substance use type: does not use ROS ROS ED Constitutional Constitutional ED: Denies chills or weight loss Eyes Eyes: Denies change in vision or diplopia ENT ENT ED: Denies ear pain, rhinorrhea or sore throat Cardiovascular Cardiovascular: Denies chest pain, orthopnea, palpitations or racing heartbeat Respiratory/Chest Respiratory/Chest: Denies cough, dyspnea or orthopnea Gastrointestinal Gastrointestinal: Reports abdominal pain and nausea; Denies diarrhea or vomiting Genitourinary Genitourinary ED: Denies dysuria, hematuria or urinary frequency Musculoskeletal Musculoskeletal: Denies arthralgias or myalgias Integumentary Denies abscess or rash Neurologic Neurologic: Denies headache(s) or weakness Psychiatric Psychiatric: Denies anxiety, depression, suicidal ideation or suicidal thoughts Endocrine Endocrinology: Denies polydipsia, polyphagia or polyuria Allergic/Immunologic Allergic/Immunologic ED: Denies mouth swelling, tongue swelling or urticaria EXAM Physical Exam Const Vital Signs: 05/19/21 04:25 Temperature 97.9 F Temperature Source Temporal Pulse Rate 69 Respiratory Rate 18 Blood Pressure 116/68 Blood Pressure Mean 84 Pulse Ox 98 Oxygen Delivery Method Room Air Positive well nourished and well developed General Appearance ED: well developed HEENT Reports normocephalic, head/scalp atraumatic and moist mucous membranes Eyes PERRL and EOMs intact bilaterally Neck no lymphadenopathy, supple and no JVD Resp normal respiratory effort and clear to auscultation bilaterally Cardio regular rate, regular rhythm and no murmurs GI normal to inspection, nondistended, normoactive bowel sounds and non-tender Palpation: soft Back/Spine no CVA tenderness and normal ROM Extremity normal to inspection General Extremety ED: Negative for edema General Extremity: Negative for edema Neuro oriented x3 and CN's II-XII intact bilaterally Sensorium / Orientation: alert Motor Exam: strength 5/5 throughout Psych mental status grossly normal Mood & Affect: Negative for depressed or tearful Skin no rashes or lesions noted and no wounds MDM MDM MDM Narrative Medical decision making narrative: Urinalysis is normal. White count 5.7. Creatinine 0.99. CT demonstrates a stable mildly dilated lower pole left renal collecting system with no obstructing stone demonstrated. Patient received IV fluids Toradol and Zofran. Later she received morphine. I called Dr. Woodall. We reviewed the case. We are going to add Toradol to her tramadol and I can write for some Zofran at home. She is to call the office. Patient states that if her pain gets worse she will come right back to the emergency room. I advised her that rather than coming immediately back to the emergency room she is just had an evaluation she should try to discuss this with her doctor. Lab Data Attestation: I reviewed the patient's lab results. Labs: Laboratory Results - last 24 hr 05/19/21 05/19/21 05/19/21 04:35 04:37 04:37 WBC 5.7 RBC 4.51 Hgb 14.3 Hct 42.5 MCV 94.2 MCH 31.7 MCHC 33.6 RDW Std Deviation 43.4 RDW Coeff of Juan 12.5 Plt Count 222 MPV 9.7 Immature Gran % (Auto) 0.700 Neut % (Auto) 66.9 Lymph % (Auto) 21.1 [place] % (Auto) 7.6 Eos % (Auto) 3.2 Baso % (Auto) 0.5 Absolute Neuts (auto) 3.8 Absolute Lymphs (auto) 1.19 Nucleated RBC % 0 Sodium 140 Potassium 3.7 Chloride 106 Carbon Dioxide 28.0 Anion Gap 6 BUN 20 H Creatinine 0.99 Estim Creat Clear Calc 60.00 Est GFR (MDRD) Af Amer 72 Est GFR (MDRD) Non-Af 60 BUN/Creatinine Ratio 20.1 H Glucose 128 H Calcium 8.9 Urine Color Yellow Urine Clarity Clear Urine pH 6.5 Ur Specific [place] 1.015 Urine Protein Negative Urine Glucose (UA) Normal Urine Ketones Negative Urine Occult Blood Negative Urine Nitrite Negative Urine Bilirubin Negative Urine Urobilinogen 1 H Ur Leukocyte Esterase 25 H Urine RBC 0 SEEN Urine WBC 0-5 SEEN Ur Squamous Epith Cells 0 SEEN Urine Bacteria 0 SEEN Urine Mucus 0 SEEN Radiography Diagnostic Testing: Clinical Impression(s) from Imaging Studies Abdomen/Pelvis CT 05/19/21 04:39 IMPRESSION: Stable mildly dilated lower pole left renal collecting system with no obstructing stone demonstrated. Small pulmonary nodules. Favor benign postinfectious etiology but consider follow-up CT in 12 months if patient is high risk (per Fleischner Society guidelines). Possible mild constipation, correlate clinically. Individualized dose optimization techniques were used for this CT. at 0541 Reported and signed by: Douglas Martin MD Electronically Signed: Douglas Martin MD at 5:40 EDT Tel , Service support , Discharge Plan Triage Chief Complaint: Flank Pain ED Provider: Nitesh Mckee Dx/Rx/DC Orders Clinical Impression: Acute left flank pain Instructions: ED Flank Pain, Uncertain Cause Prescriptions: New tramadol 50 MG tablet 50 mg PO Q4H PRN PRN (Reason: Pain) 3 Days Qty: 20 RF: 0 ketorolac 10 mg tablet 10 mg PO Q8H PRN (Reason: pain) Qty: 15 RF: 0 ondansetron [ondansetron] 4 MG tablet 4 mg PO Q8H PRN PRN (Reason: Nausea) Qty: 15 RF: 0 No Action amantadine HCl 100 MG capsule 100 mg PO BID RF: 0 ibuprofen 200 MG tablet 200 mg PO Q4H PRN PRN (Reason: Pain) RF: 0 calcium carbonate-vitamin D3 1 EACH tablet 1 mg PO DAILY RF: 0 Excedrin Migraine Caplet 2 tab PO Q6H PRN PRN (Reason: migraines) RF: 0 trazodone 50 mg tablet 50 mg PO QHS PRN PRN (Reason: Sleep) RF: 0 tizanidine 4 mg tablet 4 mg PO QHS PRN (Reason: migraines) RF: 0 zaleplon 10 mg capsule 10 mg PO QHS PRN (Reason: Sleep) RF: 0 Prolia 60 mg/mL Syringe 60 mg SUBCUT UD RF: 0 tramadol [Ultram] 50 mg tablet 50 mg PO Q8H PRN (Reason: pain) Qty: 15 RF: 0 multivitamin Tablet 1 tab PO DAILY RF: 0 Primary Care Provider: Gela Casanova Referrals: Ligia Woodall MD [STAFF PHYSICIAN] - As soon as possible Gela Casanova DO [Primary Care Provider] - Disposition Disposition: Home, Self Care
[2021-05-19 05:01] LABS: White Blood Cells 0-5 SEEN /hpf (0-5)
[2021-05-19 05:01] LABS: Anion Gap 6 (5-15); BUN 20 mg/dL (7-18); BUN/Creat Ratio 20.1 RATIO (10-20); Calcium,Total 8.9 mg/dL (8.5-10.1); Chloride 106 mmol/L (98-107); Creatinine, Serum 0.99 mg/dL (0.55-1.02); EST Glomerular Filtration Rate 60 mL/min (>60); Est Glom Filt Rate - Afr Amer 72 mL/min (>60); Glucose 128 mg/dL (74-106); Potassium 3.7 mmol/L (3.5-5.1); Sodium Level 140 mmol/L (136-145)
[2021-05-19] MEDS: Morphine 4 MG/ML Syringe IV (06:08)
[2021-05-19 07:25] VITALS: BP 105/67; PULSE 75; RESP 16; O2SAT 99
== END 2021-05-19 07:26 | disposition home or self-care (01) ==
PROVIDERS: Emergency Provider Emergency Medicine; PCP Internal Medicine
DX: R10.9 Unspecified abdominal pain (principal); K21.9 Gastro-esophageal reflux disease without esophagitis; Z86.718 Personal history of other venous thrombosis and embolism
CPT/HCPCS: 74176; 80048; 81001; 85025; 96361; 96374; 96375; 99282; J7030; A4216; J2405

== ENCOUNTER → 2021-06-03 09:51 | Outpatient (CLI) | payer OTHER, SELFPAY ==
--- NOTE | 2021-06-03 09:58 | NM_ITS ---
CLINICAL: 66-year-old female with reported history of hydronephrosis. 99m Tc MAG3 DIURETIC RENAL SCINTIGRAPHY COMPARISON: CT of the abdomen-pelvis report 05/19/2021 FINDINGS: Following the intravenous administration of 11.1 mCi of 99m Tc MAG3, renal images reveal: 1. The flow study demonstrates relatively normal arterial phase distribution of the radiopharmaceutical to the right kidney. Flow to the left kidney is delayed and decreased relative to the right renal unit. 2. Immediate static delayed nephrogram images depict prompt and homogeneous radiotracer is defined in the right kidney. Heterogeneous radiopharmaceutical uptake is manifest in the left kidney. The left kidney is larger than right. Collecting structure visualization is defined at 4 minutes following tracer injection regarding the right kidney and is not clearly identified during 20 minutes of pre and post Lasix image acquisition. Washout of the radiopharmaceutical by the renal parenchyma of the right kidney appears qualitatively normal and delayed-prolonged in the left kidney prior to diuretic provision. 3. The legeo-pe-rfdx ratio of total renal parenchymal function was calculated to be 52/48. Furosemide 20 mg was administered intravenously. The post Lasix T ? washout of the residual right kidney collecting system activity was calculated to be < 10 minutes, (normal < 10 minutes). Nonvisualization of the left kidney collecting system precludes assessment of the response to diuresis. NM/Renal Scan w/ Pharm Intervent IMPRESSION: 1. There is preservation of right kidney renal parenchymal-cortical function. Cortical dysfunction is demonstrated in the left kidney as described above. 2. The right kidney collecting system demonstrates a normal physiologic response to induced diuresis negating the presence of significant mechanical and/or functional obstruction. 3. Left kidney collecting system nonvisualization precludes assessment of the response to LASIX administration as defined above. Electronically Signed: Brent Rizzo DO at 7:57 EDT Tel , Service support ,
== END ==
PROVIDERS: PCP Internal Medicine; Referring Provider Urology; Visit Provider Urology
DX: N13.30 Unspecified hydronephrosis (principal); R82.994 Hypercalciuria; Q64.8 Other specified congenital malformations of urinary system
CPT/HCPCS: 78708; A9562; J1940

== ENCOUNTER → 2021-12-21 | Outpatient (CLI) | payer OTHER, SELFPAY ==
--- NOTE | 2021-12-21 10:41 | BI_ITS ---
MAMMOGRAPHY - BILATERAL SCREENING REASON FOR EXAM: Female, 66 years old. Routine annual screening examination. PERTINENT HISTORY: Non-contributory. TECHNIQUE: Digital bilateral breast john (3D mammographic acquisition) in the CC and MLO projections. 2-D mediolateral oblique (MLO) and craniocaudad (CC) views of both breasts were obtained. CAD: Full Field Digital Mammography with Computer Added Detection was performed. COMPARISON: Comparison is made with prior study dated 12/13/2020 and 11/10/2019. FINDINGS: Breast Composition: The breasts are heterogeneously dense, which may obscure small masses. There are no dominant masses or suspicious calcifications. No other significant abnormalities are identified. There has been no significant change since the prior study. BI/SCRN MAMM (CAD)W/JOHN BILAT IMPRESSION: Stable bilateral screening mammogram. Yearly follow-up mammogram recommended. (A) ASSESSMENT CATEGORY: BIRADS Category 1: Negative. A letter regarding these results will be sent to the patient by the facility within 30 days. Approximately 10% of breast cancers are not detected by mammography. A normal mammogram should not delay biopsy of a clinically suspicious abnormality. [id number] Electronically Signed: Oswaldo Sanchez MD at 11:56 EDT ,
== END | disposition home or self-care (01) ==
LOC: OPBI 10:39
PROVIDERS: PCP Internal Medicine; Visit Provider Internal Medicine
DX: Z12.31 Encounter for screening mammogram for malignant neoplasm of breast (principal)
CPT/HCPCS: 77063; 77067

== ENCOUNTER → 2022-12-26 | Outpatient (CLI) | payer OTHER, SELFPAY ==
--- NOTE | 2022-12-26 12:39 | MRI_ITS ---
INDICATION: MONOCULAR DIPLOPIA -- EVAL VISUAL AREAS/ COMPARE TO 2020 EXAMINATION: MRI - MR Brain WO/W Contrast TECHNIQUE: Multiplanar and multisequence MR images of the brain were obtained without and with gadolinium. IV Contrast Dosage and Agent: None. COMPARISON: 03/24/2021. FINDINGS: BRAIN PARENCHYMA: There are multiple known demyelinating lesions in the white matter of right and left cerebral hemispheres. There is a lesion in the subcortical white matter of the right postcentral gyrus is larger on today''s study now measuring 4 mm, previously measured 2 mm, axial image #20 series #6 There is a new lesion in the subcortical white matter of the left frontal lobe, measuring 3 mm, axial image #16 series #6. The remaining lesions have not significantly changed in size. None of the lesions demonstrate postcontrast enhancement. No MRI evidence of hemorrhage. No evidence of acute infarct. No intracranial mass or mass effect. Normal sella turcica, pituitary gland, infundibular stalk, optic chiasm and hypothalamus. Posterior fossa structures are unremarkable. INTERNAL AUDITORY CANALS: The internal auditory canals are well visualized and patent. No mass identified. CSF SPACES: Appropriate for age. No hydrocephalus. Basal cisterns are patent. VASCULAR SYSTEM: Normal flow voids in the major intracranial circulation. CALVARIUM, SKULL BASE, PARANASAL SINUSES AND MASTOID AIR CELLS: Clear. No expansile changes. ORBITS: Both globes, extraocular muscles, optic nerves and retrobulbar fat appear unremarkable. MRI/Brain W/WO Contrast IMPRESSION: There is a lesion in the subcortical white matter of the right postcentral gyrus is larger on today''s study now measuring 4 mm, previously measured 2 mm, axial image #20 series #6 There is a new lesion in the subcortical white matter of the left frontal lobe, measuring 3 mm, axial image #16 series #6. The remaining lesions have not significantly changed in size. None of the lesions demonstrate postcontrast enhancement. Electronically Signed: Rupinder Stevens MD at 3:42 EDT Reading Location ID and State: [facility] / [place] Tel , Service support ,
[2022-12-26 13:05] LABS: CREATININE FINGERSTICK < 0.9 mg/dL (0.55-1.02); EGFR FINGERSTICK > 60.0000 mL/min (>60)
== END | disposition home or self-care (01) ==
LOC: MRI 12:31
PROVIDERS: PCP Internal Medicine; Referring Provider Psychiatry & Neurology Neurology; Visit Provider Psychiatry & Neurology Neurology
DX: H53.2 Diplopia (principal)
CPT/HCPCS: 70553; A9575

== ENCOUNTER → 2022-12-28 | Outpatient (CLI) | payer OTHER, SELFPAY ==
--- NOTE | 2022-12-28 08:12 | BI_ITS ---
MAMMOGRAPHY - BILATERAL SCREENING REASON FOR EXAM: Female, 67 years old. Routine annual screening examination. PERTINENT HISTORY: Non-contributory. TECHNIQUE: Digital bilateral breast john (3D mammographic acquisition) in the CC and MLO projections. 2-D mediolateral oblique (MLO) and craniocaudad (CC) views of both breasts were obtained. CAD: Full Field Digital Mammography with Computer Added Detection was performed. COMPARISON: Mammogram from 12/21/2021, 12/13/2020. FINDINGS: Breast Composition: The breasts are heterogeneously dense, which may obscure small masses. There are no dominant masses or suspicious calcifications. No other significant abnormalities are identified. There has been no significant change since the prior study. BI/SCRN MAMM (CAD)W/JOHN BILAT IMPRESSION: Stable bilateral screening mammogram. Yearly follow-up mammogram recommended. (A) ASSESSMENT CATEGORY: BIRADS Category 1: Negative. A letter regarding these results will be sent to the patient by the facility within 30 days. Approximately 10% of breast cancers are not detected by mammography. A normal mammogram should not delay biopsy of a clinically suspicious abnormality. Electronically Signed: Dave Jenkins DO at 16:39 EDT ,
== END | disposition home or self-care (01) ==
LOC: OPBI 08:10
PROVIDERS: PCP Internal Medicine; Referring Provider Internal Medicine; Visit Provider Internal Medicine
DX: Z12.31 Encounter for screening mammogram for malignant neoplasm of breast (principal)
CPT/HCPCS: 77063; 77067

== ENCOUNTER → 2023-09-10 | Outpatient (CLI) | payer OTHER, SELFPAY ==
--- NOTE | 2023-09-10 16:26 | US_ITS ---
STUDY: ULTRASOUND OF THE FEMALE PELVIS - LIMITED REASON FOR EXAM: Female, 68 years old VAGINAL BLEEDING . Patient is postmenopausal. TECHNIQUE: Transabdominal and Transvaginal TECHNICAL QUALITY: Adequate. COMPARISON: None. FINDINGS: The uterus is anteverted and is in a midline position. The uterus measures 9.4 x 5.4 x 3.9 cm. There is a Nabothian cyst of the cervix. The endometrium is minimally thickened and measures 3.5 mm in thickness, and is hyperechoic. There is no demonstrated endometrial mass. 2 small fibroids are seen. The larger fibroid measures 1 cm x 1 cm x 0.9 cm. The right ovary was not visualized. The left ovary was not visualized. There is no fluid in the cul-de-sac. US/Pelvic w/ Transvaginal IMPRESSION: Mild thickening of the endometrium. There are 2, small uterine fibroids. Electronically Signed: Oswaldo Sanchez MD at 9:43 EST ,
== END | disposition home or self-care (01) ==
LOC: US 16:23
PROVIDERS: PCP Internal Medicine; Referring Provider Internal Medicine; Visit Provider Internal Medicine
DX: N93.9 Abnormal uterine and vaginal bleeding, unspecified (principal); Z78.0 Asymptomatic menopausal state
CPT/HCPCS: 76830; 76856

== ENCOUNTER → 2023-10-30 | Outpatient (CLI) | payer OTHER, SELFPAY ==
--- NOTE | 2023-10-30 08:56 | BD_ITS ---
STUDY: DUAL ENERGY X-RAY ABSORPTIOMETRY / DXA REASON FOR EXAM: Female, 68 years old. Z780 -- postmenopausal TECHNIQUE: Bone Mineral Density (BMD) measurements of lumbar spine and bilateral hips were obtained. COMPARISON: Comparison is made with prior study to April 07, 2021 and April 10, 2017. FINDINGS: Lumbar Spine (L1-L4): g/cm2 (0.849) / T-score (-1.5) / Z-score (0.3) Findings are suggestive of osteopenia with a low fracture risk. Left Femur Total: g/cm2 (0.841) / T-score (-0.8) / Z-score (0.5) Left Femoral Neck: g/cm2 (0.716) / T-score (-1.2) / Z-score (0.4) Right Femur Total: g/cm2 (0.867) / T-score (-0.6) / Z-score (0.7) Right Femoral Neck: g/cm2 (0.705) / T-score (-1.3) / Z-score (0.3) The T-Scores on the most recent prior examination were: Lumbar Spine (L1-L4): There has been improvement of bone density since the previous examination. Left Femur Total: which represents a worsening of 1.4%. Right Femur Total: which represents an improvement of 0.1%. BD/Dexa Bone Density Study IMPRESSION: The patient is considered osteopenic as outlined below according to World Burke Organization (WHO) criteria with a low fracture risk. There has been improvement of bone density since the previous examination. Reference Information: The T-score is the number of standard deviations above or below the standard which is normal for young adults at their peak bone mineral density. The World Health Organization (WHO) interprets the T-scores as follows: Above -1 Normal bone density Between -1 and -2.5 Osteopenia Equal to / or below -2.5 Osteoporosis As a practical clinical guideline, osteopenia may be graded as follows: Mild -1 through -1.5 Moderate -1.6 through -2.0 Severe -2.1 through -2.4 The Z-score is the number of standard deviations above or below age-matched controls. A Z-score of less than -1.5 would be considered abnormal. References: 1. NIH Osteoporosis and Related Bone Diseases www osteo.org 2. International Society for Clinical Densitometry www iscd.org 3. National Osteoporosis Foundation www nof.org Electronically Signed: Oswaldo Sanchez MD at 12:48 EDT ,
== END | disposition home or self-care (01) ==
LOC: OPBD 08:55
PROVIDERS: PCP Internal Medicine; Referring Provider Internal Medicine; Visit Provider Internal Medicine
DX: Z78.0 Asymptomatic menopausal state (principal)
CPT/HCPCS: 77080